=== PATIENT | male | born 1990 | race Caucasian/White ===

== ENCOUNTER 2018-12-31 05:49 | Emergency (ER) | payer MEDICAID, OTHER ==
[~2018-12-31] VITALS: Ht 172.7 cm; Wt 107.7 kg
[~2018-12-31 05:49] MED LIST: AZIT250T PO
[2018-12-31 05:50] VITALS: BP 111/88
[2018-12-31] MEDS ORDERED: predniSONE 20 mg tablet PO ONE (06:25)
[2018-12-31] MEDS ORDERED: ipratropium/albuterol 3ml nebule NEB ONE (06:25)
--- NOTE | 2018-12-31 06:40 | NUR ---
RT here giving breathing treatment.
[2018-12-31] MEDS ORDERED: ALBU8.5H8 IH (06:53)
[2018-12-31] MEDS ORDERED: PRED20TA PO (06:53)
== END 2018-12-31 07:01 | disposition home or self-care (01) ==
LOC: ER 05:49
DX: J45.901 Unspecified asthma with (acute) exacerbation (principal); F17.200 Nicotine dependence, unspecified, uncomplicated; F11.90 Opioid use, unspecified, uncomplicated; Z88.6 Allergy status to analgesic agent; Z79.899 Other long term (current) drug therapy; Z79.2 Long term (current) use of antibiotics
CPT/HCPCS: 94640; 94760; 99283; J7512